=== PATIENT | male | born 1990 | race African-American/Black ===

== ENCOUNTER 2024-01-19 07:57 | Emergency (ER) | payer BC, MEDICAID ==
[~2024-01-19] VITALS: Ht 182.9 cm; Wt 90.0 kg
[2024-01-19 07:58] VITALS: BP 146/82; PULSE 110; RESP 18; TEMP 98.4; O2SAT 99
[2024-01-19] MEDS ORDERED: ACETAMINOPHEN 325MG TABLET PO ONE (08:15)
== END 2024-01-19 08:12 | disposition home or self-care (01) ==
LOC: ER 07:57
DX: R07.89 Other chest pain (principal)
CPT/HCPCS: 99283